=== PATIENT | male | born 1995 | race Two or more races ===

== ENCOUNTER 2022-10-04 07:58 | Emergency (ER) | payer MEDICAID, OTHER ==
[~2022-10-04] VITALS: Ht 177.8 cm; Wt 114.0 kg
[2022-10-04] MEDS ORDERED: SODIUM CHLORIDE 0.9% 1,000 ML IV ONE (08:30)
[2022-10-04] MEDS ORDERED: THIAMINE 100mg/ml INJ (200mg/2ml VIAL) IV ONE (08:30)
[2022-10-04 08:39] LABS: Basophils # (auto) 0.1 10 ^3/uL (0-0.2); Basophils % (auto) 0.3 % (0.0-2.0); Eosinophils # (auto) 0 10 ^3/uL (0-0.8); Eosinophils % (auto) 0.1 % (0.0-7.0); Hematocrit 45.5 % (41.0-53.0); Hemoglobin 15.4 g/dL (13.5-17.5); Lymphocytes # (auto) 1.4 10 ^3/uL (0.4-5.4); Mean Corpuscular Hemoglobin 30.8 pg (28.0-32.0); Mean Corpuscular Hgb Conc. 33.8 g/dL (32.0-36.0); Mean Corpuscular Volume 91.4 fL (80.0-100.0); Monocytes # (auto) 1.2 10 ^3/uL (0-1.3); Monocytes % (auto) 5.2 % (0.0-12.0); Neutrophils # (auto) 21.1 10 ^3/uL (1.6-8.6); Neutrophils % (auto) 88.4 % (37.0-80.0); Red Blood Cells 4.98 10^6/uL (4.5-5.90); Red Cell Distribution Width 12.9 % (11.8-14.3); White Blood Cell 23.8 10^3/uL (4.4-10.8)
[2022-10-04 09:27] LABS: Calcium 8.8 mg/dL (8.5-10.1); Potassium 3.5 mmol/L (3.5-5.1)
[2022-10-04 09:30] LABS: BUN/Creatinine Ratio 9.3 (10.0-20.0)
[2022-10-04 09:33] LABS: Bilirubin, Total 0.3 mg/dL (0.2-1.0)
[2022-10-04] MEDS ORDERED: HYDROcodone-ACET 10/325MG TAB PO ONE (11:00)
[2022-10-04] MEDS ORDERED: KETOROLAC TROMETH 30 MG/ML 1ML VIAL IV ONE (12:45)
[2022-10-04 13:40] VITALS: BP 143/84
[2022-10-04 17:27] LABS: Amphetamine Screen, Urine NEGATIVE (NEGATIVE); Barbiturate Scree,Urine NEGATIVE (NEGATIVE); Benzodiazephine Screen, Urine NEGATIVE (NEGATIVE); Cannabinoid Screen, Urine POSITIVE (NEGATIVE)
[2022-10-04 17:34] LABS: Cocaine Screen, Urine NEGATIVE (NEGATIVE); Opiate Scree,Urine NEGATIVE (NEGATIVE); Phencyclidine Screen, Urine NEGATIVE (NEGATIVE)
== END 2022-10-04 10:16 | disposition short-term general hospital (02) ==
LOC: ER 07:58
DX: S02.92XA Unspecified fracture of facial bones, initial encounter for closed fracture (principal); S50.11XA Contusion of right forearm, initial encounter; M54.2 Cervicalgia; Y04.2XXA Assault by strike against or bumped into by another person, initial encounter; Y93.89 Activity, other specified; Y92.89 Other specified places as the place of occurrence of the external cause; Y99.8 Other external cause status
CPT/HCPCS: 36415; 70450; 70486; 72125; 80053; 80307; 80320; 85025; 96361; 96374; 96375; 99285; J1885; J3411; J7030

== ENCOUNTER 2023-05-15 15:02 | Emergency (ER) | payer MEDICAID ==
[~2023-05-15] VITALS: Ht 180.3 cm; Wt 100.9 kg
[2023-05-15 15:27] VITALS: BP 129/66; PULSE 69; RESP 16; O2SAT 100
[2023-05-15] MEDS ORDERED: ACET500T58 PO (17:39)
== END 2023-05-15 17:17 | disposition left against medical advice (07) ==
LOC: ER 15:02
DX: R51.9 Headache, unspecified (principal); F15.10 Other stimulant abuse, uncomplicated; H57.11 Ocular pain, right eye
CPT/HCPCS: 70450

== ENCOUNTER 2024-04-30 04:30 | Emergency (ER) | payer MEDICAID ==
[~2024-04-30] VITALS: Ht 180.3 cm; Wt 92.4 kg
[~2024-04-30 04:30] MED LIST: ACET500T58 PO
[2024-04-30 04:39] VITALS: BP 126/85; PULSE 138; RESP 16; TEMP 98.1; O2SAT 97
[2024-04-30] MEDS ORDERED: ACET500T58 PO (05:18)
[2024-04-30] MEDS ORDERED: AMOX875T4 PO (05:18)
[2024-04-30] MEDS: LIDOCAINE 1% HCL (LOCAL ANESTH.) INJ 20ML MDV ONE (05:18)
--- NOTE | 2024-04-30 05:18 | ED.PDOC ---
HPI Comments 29 year old male presents to ER with complaints of dog bite to face x 1 day. Patient states he was bit by a lao sheapard on his left upper lip at 3:30 a.m. prior to arrival to ER and sustained laceration to this region at that time. Denies any current pain. States he is unsure if the dog is up to date on vaccinations and is unsure when his last tetanus shot was. Denies numbness/tingling or any further symptoms/complaints Chief Complaint: Animal Bite Time Seen by MD: 05:05 Primary Care Provider: NONE Reviewed Notes: Nurses Notes, Medications, Allergies Allergies: Coded Allergies: NO KNOWN ALLERGIES (Unverified , 10/04/22) Home Meds Active Scripts Amoxicillin & Pot Clavulanate (Amoxicillin/Potassium Cla) 875 Mg Tab, 1 TAB PO BID for 7 Days, #14 TAB 0 Refills Prov:JIMENA LEVY 04/30/24 Acetaminophen (Acetaminophen) 500 Mg Tab, 500 MG PO Q4HPRN, #30 TAB 0 Refills Prov:JIMENA LEVY 04/30/24 Acetaminophen (Acetaminophen) 500 Mg Tab, 500 MG PO Q4HP PRN, #20 TAB Prov:JOE PEÑA PAC 05/15/23 Mode of Arrival: Ambulatory Complexity: Intermediate Laceration Length (cm): 3 Past Medical History PAST MEDICAL HISTORY: Denies Surgical History: Unknown Family History Family History: Unknown Social History Smoker: Non-Smoker Alcohol: Occasionally Drugs: Denies Drug Use Lives In: Home Constitutional: denies: chills, diaphoresis, fatigue, fever, malaise, sweats, weakness, others EENTM: reports: others (As stated in HPI) Respiratory: denies: cough, hemoptysis, orthopnea, SOB at rest, shortness of breath, SOB with excertion, stridor, wheezing, others Cardiovascular: denies: chest pain, dizzy spells, diaphoresis, Dyspnea on exertion, edema, irregular heart beat, left arm pain, lightheadedness, palpita tions, PND, syncope, others Gastrointestinal: denies: abdomen distended, abdominal pain, blood streaked shraddha wels, constipated, diarrhea, dysphagia, difficulty swallowing, hematemesis, melena, nausea, poor appetite, poor fluid intake, rectal bleeding, rectal pain, vomiting, others Genitourinary: denies: burning, dysuria, flank pain, frequency, hematuria, incontinence, penile discharge, penile sore, pain, testicle pain, testicle swelling, urgency, others Neurological: denies: dizziness, fainting, headache, left sided numbness, left sided weakness, numbness, paresthesia, pre-existing deficit, right sided numbness, right sided weakness, seizure, speech problems, tingling, tremors, weakness, others Musculoskeletal: denies: back pain, gout, joint pain, joint swelling, muscle pain, muscle stiffness, neck pain, others Integumetry: denies: bruises, change in color, change in hair/nails, dryness, laceration, lesions, lumps, rash, wounds, others Allergic/Immunocompromised: denies: Difficulty Healing, Frequent Infections, Hives, Itching, others Hematologic/Lymphatic: denies: anemia, blood clots, easy bleeding, easy bruisin g, swollen glands, others Endocrine: denies: excessive hunger, excessive sweating, excessive thirst, excessive urination, flushing, intolerance to cold, intolerance to heat, unexplained weight gain, unexplained weight loss, others Psychiatric: denies: anxiety, bipolar disorder, depression, hopeless, panic disorder, schizophrenia, sleepless, suicidal, others Physical Exam General Appearance: No Apparent Distress, Normal HEENT: PERRL/EOMI, Pharynx Normal, TMs Normal, Other (3 cm laceration to left upper lip noted with vermilllion border involvement. Slight TTP/swellling/erythema localized to wound edges. 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 Was a procedure done?: Yes Sedation Sedation?: No Laceration Repair : Location Left upper lip Length 3 cm Anesthetic: Lidocaine (1%) Laceration Repair Prep: Saline (and peroxide), by Irrigation (heavily irrigated without any signs of foreign body) Laceration Repair Wound Comple: epidermis/dermis repair Laceration Repair: Number of sutures (4 placed - vermilion border was properly aligned, patient tolerated well without any complication), Size (6-0 monocryl), Simple Informed consent obtained: Yes Risks, benefits, and alternati: Yes Differential diagnosis Generic Laceration: Fracture, Retained Foriegn Body, Neurovascular Injury X-Ray, Labs, Meds, VS Vital Signs Date Time Temp Pulse Resp B/P (MAP) Pulse Ox O2 Delivery O2 Flow Rate FiO2 04/30/24 04:39 Room Air 04/30/24 04:39 98.1 138 16 126/85 (99) 97 98.1 04/30/24 04:39 98.1 138 16 126/85 (99) 97 Current Medications Medications (Trade) Dose Ordered Sig/Sophia Route Start Time Stop Time Status Last Admin Diphtheria/ Tetanus/Acell Pertussis (Boostrix T-Dap) 0.5 ml ONCE ONCE IM 04/30/24 05:15 04/30/24 05:16 DC 04/30/24 05:45 Ceftriaxone Sodium (Rocephin) 1,000 mg ONCE ONCE IM 04/30/24 05:15 04/30/24 05:16 DC 04/30/24 05:49 Rocephin 1 g IM ordered T-dap .5 ml IM ordered Patient had improvement in symptoms and in no distress prior to discharge Advised to f/u in 2 days for wound check Wound care/cleaning discussed and advised Advised to f/u with PCP in 1-2 days Patient verbalized understanding and agreeable with current plan of care Advised to return to ER immediately if symptoms worsen Time of 1ST Reevaluation: 05:12 Reevaluation 1ST: N/A Time of 2ND Reevaluation: 05:36 Reevaluation 2ND: Improved Patient Education/Counseling: Diagnosis, Treatment, Prognosis, Need For Follow Up Family Education/Counseling: No Family Present Departure 1 Departure Time of Disposition: 05:38 Impression: Primary Impression: Dog bite of face Qualified Codes: S01.85XA - Open bite of other part of head, initial encounter; W54.0XXA - Bitten by dog, initial encounter Additional Impression: Laceration of lip Qualified Codes: S01.511A - Laceration without foreign body of lip, initial encounter Disposition: HOME / SELF CARE / HOMELESS Condition: Stable e-Prescriptions Amoxicillin & Pot Clavulanate (Amoxicillin/Potassium Cla) 875 Mg Tab 1 TAB PO BID for 7 Days, #14 TAB 0 Refills Prov: JIMENA LEVY 04/30/24 Acetaminophen (Acetaminophen) 500 Mg Tab 500 MG PO Q4HPRN, #30 TAB 0 Refills Prov: JIMENA LEVY 04/30/24 Discharged With: Self Critical Care Note Critical Care Time?: No Stability Stability form required: No Heart Score Heart Score: Heart Score Response (Comments) Value History N/A 0 EKG N/A 0 Age N/A 0 Risk Factors N/A 0 Troponin N/A 0 Total 0 JIMENA LEVY Apr 30, 2024 05:18
[2024-04-30] MEDS: TETANUS-DIPTH-ACEL PERTUSSIS 0.5ML SYR Tdap IM ONE (05:45)
[2024-04-30] MEDS: cefTRIAXone SOD 1,000 MG VL IM ONE (05:49)
== END 2024-04-30 05:50 | disposition home or self-care (01) ==
LOC: ER 04:30
DX: S01.511A Laceration without foreign body of lip, initial encounter (principal); S01.551A Open bite of lip, initial encounter; Z79.899 Other long term (current) drug therapy; W54.0XXA Bitten by dog, initial encounter; Y93.89 Activity, other specified; Y92.89 Other specified places as the place of occurrence of the external cause; Y99.8 Other external cause status
CPT/HCPCS: 40650; 90471; 90715; 96372; 99284; J0696; J2003

== ENCOUNTER 2024-09-08 02:32 | Emergency (ER) | payer MEDICAID ==
[~2024-09-08] VITALS: Ht 180.3 cm; Wt 87.8 kg
[~2024-09-08 02:32] MED LIST changes: +AMOX875T4 PO
[2024-09-08 02:43] VITALS: BP 124/80; PULSE 120; RESP 16; TEMP 98.3; O2SAT 98
[2024-09-08] MEDS ORDERED: IBUP-1456 PO (02:50)
[2024-09-08] MEDS ORDERED: AUG875T PO (02:50)
--- NOTE | 2024-09-08 02:50 | ED.PDOC ---
History of Present Illness(SKN HPI Comments C/C: PATIENT GOT BIT BY ONE OF HIS DOGS WHEN HE WAS ATTEMPTING TO PULL HIS DOG AWAY FROM A STRAY DOG. LACERATION NOTED TO THE RIGHT PALM OF THE HAND. (+)CSM Chief Complaint: Animal Bite Time Seen by MD: 02:34 Primary Care Provider: NONE History of Present Illness: Nurses Notes, Medications, Allergies Allergies: Coded Allergies: NO KNOWN ALLERGIES (Unverified , 10/04/22) Home Meds Active Scripts Ibuprofen (Ibuprofen) 800 Mg Tab, 800 MG PO Q8HP PRN for 4 Days, #12 TAB Prov:DANIKA WILSON NEWSPERSON 09/08/24 Amoxicillin & Pot Clavulanate (AUGMENTIN TABLET) 875 Mg Tb, 875 MG PO BID for 7 Days, #14 TAB Prov:DANIKA WILSON NEWSPERSON 09/08/24 Amoxicillin & Pot Clavulanate (Amoxicillin/Potassium Cla) 875 Mg Tab, 1 TAB PO BID for 7 Days, #14 TAB 0 Refills Prov:JIMENA LEVY 04/30/24 Acetaminophen (Acetaminophen) 500 Mg Tab, 500 MG PO Q4HPRN, #30 TAB 0 Refills Prov:JIMENA LEVY 04/30/24 Acetaminophen (Acetaminophen) 500 Mg Tab, 500 MG PO Q4HP PRN, #20 TAB Prov:JOE PEÑA 05/15/23 Information Source: Patient Past Medical History PAST MEDICAL HISTORY: Denies Surgical History: Unknown Family History Family History: Unknown Social History Smoker: Non-Smoker Alcohol: Occasionally Drugs: Denies Drug Use Lives In: Home Constitutional: denies: chills, diaphoresis, fatigue, fever, malaise, sweats, weakness, others EENTM: denies: blurred vision, double vision, ear bleeding, ear discharge, ear drainage, ear pain, ear ringing, eye pain, eye redness, hearing loss, mouth pain, mouth swelling, nasal discharge, nose bleeding, nose congestion, nose pain, photophobia, tearing, throat pain, throat swelling, voice changes, others Respiratory: denies: cough, hemoptysis, orthopnea, SOB at rest, shortness of breath, SOB with excertion, stridor, wheezing, others Cardiovascular: denies: chest pain, dizzy spells, diaphoresis, Dyspnea on exertion, edema, irregular heart beat, left arm pain, lightheadedness, palpitations, PND, syncope, others Gastrointestinal: denies: abdomen distended, abdominal pain, blood streaked bowels, constipated, diarrhea, dysphagia, difficulty swallowing, hematemesis, melena, nausea, poor appetite, poor fluid intake, rectal bleeding, rectal pain, vomiting, others Genitourinary: denies: burning, dysuria, flank pain, frequency, hematuria, incontinence, penile discharge, penile sore, pain, testicle pain, testicle swelling, urgency, others Neurological: denies: dizziness, fainting, headache, left sided numbness, left sided weakness, numbness, paresthesia, pre-existing deficit, right sided numbness, right sided weakness, seizure, speech problems, tingling, tremors, weakness, others Musculoskeletal: denies: back pain, gout, joint pain, joint swelling, muscle pain, muscle stiffness, neck pain, others Integumetry: reports: laceration (RIGHT HAND PALM ASPECT); denies: bruises, change in color, change in hair/nails, dryness, lesions, lumps, rash, wounds, others Allergic/Immunocompromised: denies: Difficulty Healing, Frequent Infections, Hives, Itching, others Hematologic/Lymphatic: denies: anemia, blood clots, easy bleeding, easy bruising, swollen glands, others Endocrine: denies: excessive hunger, excessive sweating, excessive thirst, excessive urination, flushing, intolerance to cold, intolerance to heat, unexplained weight gain, unexplained weight loss, others Psychiatric: denies: anxiety, bipolar disorder, depression, hopeless, panic disorder, schizophrenia, sleepless, suicidal, others Physical Exam General Appearance: No Apparent Distress, Normal HEENT: Pharynx Normal Neck: Full Range of Motion, Non-Tender Respiratory: Lungs Clear, No Respiratory Distress, Normal Breath Sounds Cardiovascular: No Murmur, Normal Peripheral Pulses, Regular Rate/Rhythm Breast Exam: Deferred Gastrointestinal: Non Tender, Soft Genitalia: Deferred Pelvic: Deferred Rectal: Deferred Extremities: Normal capillary refill, Normal inspection, Normal range of motion, Non-tender, No pedal edema Musculoskeletal : Apperance: Normal Neurologic: Alert, No Motor Deficits, Normal Affect, Normal Mood, No Sensory Deficits Cerebellar Function: Normal Reflexes: Normal Skin: Dry, Lacerations (FULL-THICKNESS LACERATION ACROSS PALM OF RIGHT HAND APPROXIMATE 1 IN NO NOTED OBVIOUS FOREIGN BODIES BLEEDING CONTROLLED FAT 1S EXPOSED. STRENGTH SENSORY MOTION INTACT), Normal Color, Warm Lymphatic: No Adenopathy Was a procedure done? Was a procedure done?: Yes Sedation Sedation?: No Informed consent obtained: Yes Laceration Repair : Length 2 Anesthetic: Lidocaine, Without epi Laceration Repair Prep: Saline, by Irrigation Laceration Repair Wound Comple: epidermis/dermis repair Laceration Repair: Number of sutures (5) Informed consent obtained: Yes Risks, benefits, and alternati: Yes Notes PATIENT TOLERATED WELL WITH MINIMAL BLOOD LOSS Differential Diagnosis (INTG) Differential Diagnosis: Cellulitis, Hematoma, Laceration, Puncture Wound Differential Diagnosis: Abscess X-Ray, Labs, Meds, VS Vital Signs Date Time Temp Pulse Resp B/P (MAP) Pulse Ox O2 Delivery O2 Flow Rate FiO2 09/08/24 02:43 98.3 120 16 124/80 (95) 98 98.3 09/08/24 02:43 120 16 98 Room Air* 0 21 09/08/24 02:43 98.3 120 16 124/80 (95) 98 98.3 X-Ray, Labs, Meds, VS Comment SEE PROCEDURE NOTE. SCRIPT PROPHYLACTIC ANTIBIOTICS AND PAIN MEDICATION FOR THIS PATIENT TAKE MEDICATION PRESCRIBED SIDE EFFECTS DISCUSSED. SUTURE REMOVAL IN 5-7 DAYS ER RETURN PRECAUTIONS GIVEN PATIENT INDICATES UNDERSTANDING AGREES WITH DISCHARGE PLAN OF CARE. Time of 1ST Reevaluation: 02:45 Reevaluation 1ST: Unchanged Time of 2ND Reevaluation: 03:19 Reevaluation 2ND: Improved Patient Education/Counseling: Diagnosis, Treatment, Prognosis, Need For Follow Up Family Education/Counseling: No Family Present Departure 1 Departure Time of Disposition: 03:18 Impression: Primary Impression: Dog bite of hand without complication Qualified Codes: S61.451A - Open bite of right hand, initial encounter; W54.0XXA - Bitten by dog, initial encounter Disposition: 01 HOME / SELF CARE / HOMELESS Condition: Stable e-Prescriptions Ibuprofen (Ibuprofen) 800 Mg Tab 800 MG PO Q8HP PRN for 4 Days, #12 TAB Prov: DANIKA WILSON 09/08/24 Amoxicillin & Pot Clavulanate (AUGMENTIN TABLET) 875 Mg Tb 875 MG PO BID for 7 Days, #14 TAB Prov: DANIKA WILSON 09/08/24 Discharged With: Self Critical Care Note Critical Care Time?: No Stability Stability form required: DANIKA Shepard Sep 08, 2024 02:50
== END 2024-09-08 03:26 | disposition home or self-care (01) ==
LOC: ER 02:32
DX: S61.411A Laceration without foreign body of right hand, initial encounter (principal); W54.0XXA Bitten by dog, initial encounter; Y93.89 Activity, other specified; Y92.89 Other specified places as the place of occurrence of the external cause; Y99.8 Other external cause status
CPT/HCPCS: 12001